=== PATIENT | male | born 1970 | race African-American/Black ===

== ENCOUNTER 2019-03-15 08:57 | Inpatient (IN) | payer OTHER ==
[2019-03-15 09:59] VITALS: BMI 23.7
--- NOTE | 2019-03-15 10:27 | HP ---
CIWA Score Nausea/Vomitin Muscle Tremors: 4-Moderate,w/Arms Extend Anxiety: 4-Mod. Anxious/Guarded Agitation: 1-Slight > Activity Paroxysmal Sweats: 1-Minimal Palms Moist Orientation: 0-Oriented Tacttile Disturbances: 1-Very Mild Itch/Numbness Auditory Disturbances: 0-None Visual Disturbances: 0-None Headache: 2-Mild CIWA-Ar Total Score: 15 - Admission Criteria OASAS Guidelines: Admission for Medically Managed Detox: Requires at least one of the followin. CIWA greater than 12 2. Seizures within the past 24 hours 3. Delirium tremens within the past 24 hours 4. Hallucinations within the past 24 hours 5. Acute intervention needed for co occurring medical disorder 6. Acute intervention needed for co occurring psychiatric disorder 7. Severe withdrawal that cannot be handled at a lower level of care (continued vomiting, continued diarrhea, abnormal vital signs) requiring intravenous medication and/or fluids 8. Patient presents the following: CIWA greater than 12 Admission Criteria Met: Admission criteria met Admission ROS BHS - HPI Chief Complaint: I'm tired of living this life- I've been on the other side and I don't want to be there - it's not a life, I'm sick, I can't stop drinking - as soon as I left I just went to the liquor store. Allergies/Adverse Reactions: Allergies Allergy/AdvReac Type Severity Reaction Status Date / Time codeine Allergy Severe Hives Verified 03/15/19 09:46 History of Present Illness: 48 yo gentleman here for detox from alcohol and opiates. Patient reports living in [place] for 10 years, states he had been in treatment for alcohol in 2014 and did well for two years then relapsed in 2017. He moved to [place] two weeks ago and continued drinking. He reports being in [facility] detox 03/11- and was supposed to go into rehab but there were no beds so he resumed drinking. He is seeking detox and rehab now. urine tox + methadone but he denies being on a methadone program or using street methadone - he states ' maybe they gave it to me at [facility]'. Denies seizures or overdose but has had black outs. States he drinks 'as soon as the liquor store opens, that's 8am in [place]'. Exam Limitations: No Limitations - Ebola screening Have you traveled outside of the country in the last 21 days: No (N) Have you had contact with anyone from an Ebola affected area: No Do you have a fever: No - Review of Systems Constitutional: Chills, Loss of Appetite, Night Sweats, Unintentional Wgt. Loss EENT: reports: Blurred Vision, Nose Congestion Respiratory: reports: No Symptoms reported Cardiac: reports: No Symptoms Reported GI: reports: Nausea, Poor Appetite, Indigestion, Abdominal cramping : reports: Frequency Musculoskeletal: reports: Back Pain, Muscle Pain Integumentary: reports: No Symptoms Reported Neuro: reports: Headache, Tingling Endocrine: reports: No Symptoms Reported Hematology: reports: No Symptoms Reported Psychiatric: reports: Judgement Intact, Mood/Affect Appropiate, Anxious Other Systems: Reviewed and Negative Patient History - Patient Medical History Hx Asthma: No Hx Cancer: No Hx Congestive Heart Failure: No Hx Hypertension: No Hx Hypercholesterolemia: No Hx Pacemaker: No HX Cerebrovascular Accident: Yes (2013 - left side mild weakness) Hx Seizures: No Hx Diabetes: No Hx Gastrointestinal Disorders: Yes (GERD) Hx Liver Disease: No Hx Genitourinary Disorders: No Hx Sexually Transmitted Disorders: No Hx Renal Disease (ESRD): No Hx Thyroid Disease: No Hx Human Immunodeficiency Virus (HIV): No Hx Hepatitis C: No Hx Depression: Yes (never hospitalized - on meds ) Hx Suicide Attempt: No Hx Bipolar Disorder: Yes Hx Schizophrenia: No - Patient Surgical History Past Surgical History: Yes Hx Abdominal Surgery: Yes (bilateral inguinal hernia repair 1992, 2015) - PPD History Previous Implant?: Yes Documented Results: Negative w/o proof Implanted On Prior R Admission?: No PPD to be Administered?: Yes - Reproductive History Patient is a Female of Child Bearing Age (11 -55 yrs old): No - Smoking Cessation Smoking history: Current every day smoker Have you smoked in the past 12 months: Yes Aproximately how many cigarettes per day: 10 Initiated information on smoking cessation: Yes 'Breaking Loose' booklet given: 03/15/19 (give on floor) - Substance & Tx. History Hx Alcohol Use: Yes Hx Substance Use: Yes Substance Use Type: Alcohol, Cocaine, Heroin Hx Substance Use Treatment: Yes - Substances abused Alcohol Substance route: Oral Frequency: Daily Amount used: 1 litre of vodka Age of first use: 13 Date of last use: 03/14/19 Cocaine Substance route: Smoking Frequency: Daily Amount used: 300-400usd daily Age of first use: 17 Date of last use: 03/14/19 Heroin Substance route: Inhalation Frequency: Daily Amount used: 1 bag Age of first use: 48 Date of last use: 03/13/19 Alprazolam (Xanax) Substance route: Oral Frequency: 1-3 times last 30 days Amount used: 1 bar Age of first use: 47 Date of last use: 03/11/19 Marijuana/Hashish Substance route: Smoking Frequency: Daily Amount used: 2 blunts Age of first use: 12 Date of last use: 03/14/19 Family Disease History - Family Disease History Family Disease History: Other: Father (living - healthy), Mother (living - healthy), Brother (one - healthy), Sister (one - healthy), Son (one - adult age 27 - healthy), Daughter (one age 19 -healthy) Admission Physical Exam S - Vital Signs Vital Signs: Vital Signs - 24 hr 03/15/19 03/15/19 09:16 10:07 Temperature 97.2 F L 97.2 F L Pulse Rate 88 88 Respiratory 17 17 Rate Blood Pressure 104/64 104/64 - Physical General Appearance: Yes: Nourished, Appropriately Dressed, Moderate Distress, Irritable, Anxious HEENTM: Yes: EOMI, Hearing grossly Normal, Normal ENT Inspection, Normocephalic , Normal Voice, Other (tongue coated) Respiratory: Yes: Normal Breath Sounds, No Respiratory Distress Neck: Yes: No masses,lesions,Nodules Breast: Yes: Breast Exam Deferred Cardiology: Yes: Regular Rhythm, Regular Rate Abdominal: Yes: Soft Genitourinary: Yes: Frequency Back: Yes: Normal Inspection Musculoskeletal: Yes: full range of Motion, Gait Steady Extremities: Yes: Normal Inspection, Normal Range of Motion, Non-Tender Neurological: Yes: Fully Oriented, Alert, Normal Mood/Affect, Normal Response Integumentary: Yes: Normal Color, Warm Lymphatic: Yes: Within Normal Limits - Diagnostic (1) Alcohol dependence with uncomplicated withdrawal Current Visit: Yes Status: Chronic (2) Cocaine dependence Current Visit: Yes Status: Chronic Qualifiers: Substance use status: uncomplicated Qualified Code(s): F14.20 - Cocaine dependence, uncomplicated (3) Marijuana dependence Current Visit: Yes Status: Chronic (4) Nicotine dependence Current Visit: Yes Status: Chronic Qualifiers: Nicotine product type: cigarettes Substance use status: uncomplicated Qualified Code(s): F17.210 - Nicotine dependence, cigarettes, uncomplicated (5) Mild alprazolam abuse Current Visit: Yes Status: Chronic (6) Opiate abuse, episodic Current Visit: Yes Status: Chronic (7) History of CVA (cerebrovascular accident) Current Visit: Yes Status: Chronic Cleared for Admission S - Detox or Rehab [facility] Level of Care: Medically Managed Detox Regimen/Protocol: Librium Breathalyzer - Breathalyzer Breathalyzer: 0 Urine Drug Screen - Test Device Lot number: [id number] Expiration date: 11/21/20 - Control Is test valid?: Yes - Results Drug screen NEGATIVE: No Urine drug screen results: THC-Marijuana, FREDDY-Cocaine, MTD-Methadone, BZO- Benzodiazepines Inpatient Rehab Admission - Rehab Decision to Admit Inpatient rehab admission?: No
[2019-03-15] MEDS ORDERED: IBUPROFEN 400 MG TABLET (FP) PO PRN (10:48)
[2019-03-15] MEDS ORDERED: NICOTINE POLACRILEX 4 MG GUM BUC PRN (10:48)
[2019-03-15] MEDS ORDERED: MELATONIN 5 MG TABLETS PO PRN (10:48)
[2019-03-15] MEDS ORDERED: MAG HYDROX/AL HYDROX/SIMETH 30 ML UNIT-DOSE CUP PO PRN (10:48)
[2019-03-15] MEDS ORDERED: METHOCARBAMOL 500 MG TABLET PO PRN (10:48)
[2019-03-15] MEDS ORDERED: chlordiazePOXIDE HCL 25 MG CAPSULE PO ONE (10:48)
[2019-03-15] MEDS ORDERED: chlordiazePOXIDE HCL 25 MG CAPSULE PO PRN (10:48)
[2019-03-15] MEDS ORDERED: ACETAMINOPHEN 325 MG TABLET (FP) PO PRN (10:48)
[2019-03-15] MEDS ORDERED: MAGNESIUM CITRATE 300 ML BOTTLE PO PRN (10:48)
[2019-03-15] MEDS ORDERED: BISMUTH SUBSALICYLATE 524 MG/30 ML UD PO PRN (10:48)
[2019-03-15] MEDS ORDERED: MAGNESIUM HYDROX 2400MG/30ML ORAL SUSPENSION 30 ML CUP PO PRN (10:48)
[2019-03-15] MEDS ORDERED: hydrOXYzine PAMOATE 25 MG CAPSULE (FP) PO PRN (10:48)
[2019-03-15] MEDS ORDERED: MENTHOL/PHENOL 1 EACH UD MM PRN (10:48)
[2019-03-15] MEDS: chlordiazePOXIDE HCL 25 MG CAPSULE PO SCH ×3 (11:49→22:51)
[2019-03-15] MEDS: NICOTINE 14 MG/24 HOURS TOPICAL PATCH TD SCH (11:54)
[2019-03-15] MEDS: THIAMINE HCL 100 MG TABLET (FP) PO SCH (22:51)
--- NOTE | 2019-03-16 05:44 | PN ---
[facility] Progress Note Note: Patient complained of cough and nasal congestion Vital Signs Temperature 97.8 F 03/16/19 06:21 Pulse Rate 82 03/16/19 06:21 Respiratory Rate 18 03/16/19 06:21 Blood Pressure 110/71 03/16/19 06:21 O2 Sat by Pulse Oximetry (%) Action: Guaifenesin 10ml oral Q6H as needed ordered Sudafed 30ml oral Q4H x 3 days ordered
[2019-03-16] MEDS ORDERED: PSEUDOEPHEDRINE HCL 30 MG TABLET PO SCH ×3 (05:45→07:45)
[2019-03-16] MEDS: chlordiazePOXIDE HCL 25 MG CAPSULE PO SCH ×4 (05:49→22:21)
[2019-03-16] MEDS ORDERED: P-EPHED 60MG/TRIPROLIDI 2.5MG TABLET PO PRN (07:38)
--- NOTE | 2019-03-16 09:38 | PN ---
[facility] CIWA - CIWA Score Nausea/Vomitin-Mild Nausea/No Vomiting Muscle Tremors: 3 Anxiety: 2 Agitation: 2 Paroxysmal Sweats: No Perspiration Orientation: 0-Oriented Tacttile Disturbances: 0-None Auditory Disturbances: 0-None Visual Disturbances: 1-Very Mild Sensitivity Headache: 1-Very Mild CIWA-Ar Total Score: 10 BHS Progress Note (SOAP) Subjective: alistair says cough is improving otherwise co poor sleep, shakiness and weakness Objective: 03/16/19 09:37 labs pending Vital Signs - 24 hr 03/15/19 03/15/19 03/15/19 10:07 13:30 17:25 Temperature 97.2 F L 97.3 F L 97.3 F L Pulse Rate 88 79 80 Respiratory 17 18 19 Rate Blood Pressure 104/64 142/91 118/71 03/15/19 03/16/19 03/16/19 21:46 00:28 03:30 Temperature 99 F Pulse Rate 84 Respiratory 19 18 18 Rate Blood Pressure 112/79 03/16/19 03/16/19 06:21 09:09 Temperature 97.8 F 98.1 F Pulse Rate 82 86 Respiratory 18 18 Rate Blood Pressure 110/71 130/85 Assessment: ongoign withdrawal Plan: continue current detox protocol fu cough, labs
[2019-03-16] MEDS: PRENATAL VITAMINS W/ FOLIC ACID TABLET (FP) PO SCH (10:11)
[2019-03-16] MEDS: NICOTINE 14 MG/24 HOURS TOPICAL PATCH TD SCH (10:12)
[2019-03-16 10:33] LABS: HEMOGLOBIN 13.9 GM/dL (11.7-16.9); MCH 30.4 pg (25.7-33.7); MCHC 33.2 g/dl (32.0-35.9); MEAN CELL VOLUME 91.7 fl (80-96); MEAN PLT VOLUME 7.4 fl (7.5-11.1); PLATELET COUNT 330 K/MM3 (134-434); RBC 4.58 M/mm3 (4.00-5.60); RDW 13.5 % (11.9-15.9); WHITE BLOOD COUNT 5.7 K/mm3 (4.0-10.0)
[2019-03-16 10:45] LABS: ALBUMIN 3.2 g/dl (3.4-5.0); BILIRUBIN,TOTAL 0.4 mg/dL (0.2-1); BLOOD UREA NITROGEN 10.7 mg/dL (7-18); CALCIUM 8.4 mg/dL (8.5-10.1); CREATININE 0.8 mg/dL (0.55-1.3); TOT PROT 6.2 g/dl (6.4-8.2)
[2019-03-16] MEDS: guaiFENesin/D-METHORPHAN HB 10 ML UNIT-DOSE CUPS PO PRN ×2 (12:20→19:39)
--- NOTE | 2019-03-16 13:01 | EKG ---
Test Reason : Blood Pressure : / mmHG Vent. Rate : 082 BPM Atrial Rate : 082 BPM P-R Int : 204 ms QRS Dur : 088 ms QT Int : 366 ms P-R-T Axes : 069 074 059 degrees QTc Int : 427 ms NORMAL SINUS RHYTHM NORMAL ECG NO PREVIOUS ECGS AVAILABLE Confirmed by ZACKARY JASON MD ([id number]) on 03/16/2019 1:00:47 PM Referred By: Confirmed By:ZACKARY JASON MD
--- NOTE | 2019-03-16 15:24 | PN ---
[facility] Progress Note Note: Psychiatrist neuropsychology division chief note Patient was admitted on 03/15/19 to detox. Medication reconciliation done. Depakote 500 mg/bid and Seroquel 100 mg/bid ordered
[2019-03-16] MEDS: THIAMINE HCL 100 MG TABLET (FP) PO SCH (22:20)
[2019-03-16] MEDS: DIVALPROEX SODIUM 500 MG TABLET E.C. PO SCH (22:21)
[2019-03-16] MEDS: QUEtiapine FUMARATE 100 MG TABLET (FP) PO SCH (22:21)
[2019-03-17] MEDS: chlordiazePOXIDE HCL 25 MG CAPSULE PO SCH (04:32)
[2019-03-17] MEDS: QUEtiapine FUMARATE 100 MG TABLET (FP) PO SCH ×2 (10:21→22:06)
[2019-03-17] MEDS: guaiFENesin/D-METHORPHAN HB 10 ML UNIT-DOSE CUPS PO PRN (10:24)
[2019-03-17] MEDS: chlordiazePOXIDE HCL 10 MG CAPSULE PO SCH ×3 (10:25→22:06)
[2019-03-17] MEDS: DIVALPROEX SODIUM 500 MG TABLET E.C. PO SCH ×2 (10:25→22:06)
[2019-03-17] MEDS: PRENATAL VITAMINS W/ FOLIC ACID TABLET (FP) PO SCH (10:25)
[2019-03-17] MEDS: NICOTINE 14 MG/24 HOURS TOPICAL PATCH TD SCH (10:25)
[2019-03-17] MEDS ORDERED: chlordiazePOXIDE HCL 10 MG CAPSULE PO PRN (11:00)
--- NOTE | 2019-03-17 11:50 | CONSULT ---
[facility] Psychiatric Consult - Data Date of interview: 03/17/19 Admission source: [facility] Identifying data: First admission to [facility] for this 48 y/o AA male self- referred for detoxification (heroin, cocaine, alcohol, cannabis, xanax, nicotine ). Examined at [address] [place] [address]. Patient is , a father of two, domiciled and reportedly employed. Substance Abuse History: Discussed in this session. Mr Bell confirms data in the following segment of [facility] report : Smoking history: Current every day smoker. Have you smoked in the past 12 months: Yes. Aproximately how many cigarettes per day: 10. Initiated information on smoking cessation: Yes. ' Breaking Loose' booklet given: 03/15/19 (give on floor). - Substance & Tx. History. Hx Alcohol Use: Yes. Hx Substance Use: Yes. Substance Use Type: Alcohol, Cocaine, Heroin. Hx Substance Use Treatment: Yes. - Substances abused. Alcohol. Substance route: Oral. Frequency: Daily. Amount used: 1 litre of vodka. Age of first use: 13. Date of last use: 03/14/19. Cocaine. Substance route: Smoking. Frequency: Daily. Amount used: 300-400usd daily. Age of first use: 17. Date of last use: 03/14/19. Heroin. Substance route: Inhalation. Frequency: Daily. Amount used: 1 bag. Age of first use: 48. Date of last use: 03/13/19. Alprazolam (Xanax). Substance route: Oral. Frequency: 1-3 times last 30 days. Amount used: 1 bar. Age of first use: 47. Date of last use: 03/11/19. Marijuana/Hashish. Substance route: Smoking. Frequency: Daily. Amount used: 2 blunts. Age of first use: 12. Date of last use: 03/14/19 Medical History: Medical profile is remarkable for GERD, antecedent of CVA + left sided weakness (2012) and a history of bilatreral inguinal herniorraphy. Psychiatric History: Patient denies history of psychiatric hospitalizations. Mr Bell indicates that he is currently on depakote 500 mg/bid + seroquel 100 mg/ hs. Diagnosed with Bipolar Disorder and Intermittent Explosive Disorder. " I have not seen a psychiatrist for past two years. I get my refills from my primary care doctors ". Pharmacy activity review shows recent refills (03/12/19) for both drugs at [facility]. Patient denies history of suicide attempts. Physical/Sexual Abuse/Trauma History: Patient denies. Additional Comment: Urine drug screen results: THC-Marijuana, FREDDY-Cocaine, MTD- Methadone, BZO-Benzodiazepines. Noted. Mental Status Exam - Mental Status Exam Alert and Oriented to: Time, Place, Person Cognitive Function: Good Patient Appearance: Well Groomed Mood: Nervous, Anxious Affect: Mood Congruent, Constricted Patient Behavior: Fatigued, Appropriate, Cooperative Speech Pattern: Clear, Appropriate Voice Loudness: Normal Thought Process: Goal Oriented Thought Disorder: Not Present Hallucinations: Denies Suicidal Ideation: Denies Homicidal Ideation: Denies Insight/Judgement: Poor Sleep: Poorly, Difficulty falling asleep Appetite: Good Muscle strength/Tone: Normal Gait/Station: Normal Psychiatric Findings - Problem List ([place] 1, 2,3) (1) Alcohol dependence with uncomplicated withdrawal Current Visit: Yes Status: Acute (2) Opiate abuse, episodic Current Visit: Yes Status: Chronic (3) Cocaine dependence Current Visit: Yes Status: Chronic Qualifiers: Substance use status: uncomplicated Qualified Code(s): F14.20 - Cocaine dependence, uncomplicated (4) Marijuana dependence Current Visit: Yes Status: Chronic (5) Mild alprazolam abuse Current Visit: Yes Status: Chronic (6) Nicotine dependence Current Visit: Yes Status: Chronic Qualifiers: Nicotine product type: cigarettes Substance use status: uncomplicated Qualified Code(s): F17.210 - Nicotine dependence, cigarettes, uncomplicated (7) Substance induced mood disorder Current Visit: Yes Status: Chronic (8) History of bipolar disorder Current Visit: Yes Status: Chronic (9) Insomnia Current Visit: Yes Status: Chronic (10) Non-compliance Current Visit: Yes Status: Chronic - Initial Treatment Plan Initial Treatment Plan: Psychoeducation. Sleep hygiene. Detoxification. Support. AA/NA meetings. Relapse prevention (MAT) : discussed in this session. Medications resumed as : seroquel 100 mg po hs + depakote 500 mg po bid. Side effects/benefits of both drugs are discussed with patient. Made aware of risk of blood dyscrasias, weight gain, alopecia, liver dysfunction, metabolic syndrome, orthostasis and abnormal involuntary movements. Patient expresses his agrrement with this plan of care. Verbal consent granted to MD. Valproic acid level requested. Will follow. Observation.
--- NOTE | 2019-03-17 13:52 | PN ---
[facility] CIWA - CIWA Score Nausea/Vomitin-No Nausea/No Vomiting Muscle Tremors: 2 Anxiety: 3 Agitation: 0-Normal Activity Paroxysmal Sweats: 2 Orientation: 0-Oriented Tacttile Disturbances: 0-None Auditory Disturbances: 1-Very Mild Visual Disturbances: 2-Mild Sensitivity Headache: 0-None Present CIWA-Ar Total Score: 10 S Progress Note (SOAP) Subjective: Fatigue, Anxious, Sweating. Patient Reporting Cough X approx. 4 days now. Cough is non-productive, according to Patient. Patient denies [id number], Nasal Congestion, and Sore Throat. Patient notes that He believes that He initially got sick when he was in other facility near the end of last week. Objective: PATIENT A & O X 3. IN NO ACUTE DISTRESS. PATIENT IS AFBERILE. 03/17/19 13:49 Vital Signs Temperature 98.3 F 03/17/19 13:15 Pulse Rate 106 H 03/17/19 13:15 Respiratory Rate 18 03/17/19 13:15 Blood Pressure 118/81 03/17/19 13:15 O2 Sat by Pulse Oximetry (%) Laboratory Tests 03/16/19 03/16/19 03/16/19 08:00 08:00 08:00 WBC 5.7 RBC 4.58 Hgb 13.9 Hct 42.0 MCV 91.7 MCH 30.4 MCHC 33.2 RDW 13.5 Plt Count 330 MPV 7.4 L Sodium 143 Potassium 4.0 Chloride 108 H Carbon Dioxide 29 Anion Gap 6 L BUN 10.7 Creatinine 0.8 Est GFR (CKD-EPI)AfAm 123.29 Est GFR (CKD-EPI)NonAf 106.38 Random Glucose 113 H Calcium 8.4 L Total Bilirubin 0.4 AST 14 L ALT 18 Alkaline Phosphatase 84 Total Protein 6.2 L Albumin 3.2 L RPR Titer Nonreactive LABS NOTED. Assessment: 03/17/19 13:50 WITHDRAWAL SYMPTOMS. Plan: CONTINUE DETOS. INCREASE DAILY PO WATER INTAKE. PRN DUONEB FOR COUGH. MUCINEX BID FOR COUGH (PATIENT REPORTS POOR EFFECT FROM ROBITUSSIN).
[2019-03-17] MEDS: guaiFENesin/D-METHORPHAN TAB.ER.12H PO SCH ×2 (15:27→22:14)
[2019-03-17] MEDS: ALBUTEROL SO4 2.5/IPRATROPIUM 0.5 INH SOL 3 ML VIAL.NEB. NEB PRN (15:29)
[2019-03-17] MEDS ORDERED: MIRTAZAPINE 15 MG TABLET (FP) PO SCH (22:00)
[2019-03-17] MEDS: THIAMINE HCL 100 MG TABLET (FP) PO SCH (22:06)
[2019-03-17 23:32] LABS: EPI CELLS 1.8 /HPF (0-5/HPF); HYALINE CASTS 4 /lpf (0-8); PH,URINE 7.5 (5.0-8.0); URINE APPEARANCE CLEAR; URINE BACTERIA 11.5 /hpf (NEGATIVE); URINE BILIRUBIN NEGATIVE (NEGATIVE); URINE COLOR YELLOW; URINE GLUCOSE (UA) NEGATIVE (NEGATIVE); URINE KETONE TRACE (NEGATIVE); URINE LEUK ESTERASE TRACE (NEGATIVE); URINE NITRITE NEGATIVE (NEGATIVE); URINE PROTEIN NEGATIVE (NEGATIVE); URINE RBC 0 /hpf (0-4); URINE WBC 4 /hpf (0-5)
[2019-03-18 00:07] LABS: URINE CRYSTALS FEW CA OXALT /hpf
[2019-03-18] MEDS: chlordiazePOXIDE HCL 10 MG CAPSULE PO SCH (05:33)
[2019-03-18 09:19] VITALS: BP 118/71; PULSE 88; TEMP 97
[2019-03-18] MEDS: QUEtiapine FUMARATE 100 MG TABLET (FP) PO SCH (10:13)
[2019-03-18] MEDS: DIVALPROEX SODIUM 500 MG TABLET E.C. PO SCH (10:13)
[2019-03-18] MEDS: guaiFENesin/D-METHORPHAN TAB.ER.12H PO SCH (10:13)
[2019-03-18] MEDS: PRENATAL VITAMINS W/ FOLIC ACID TABLET (FP) PO SCH (10:14)
[2019-03-18] MEDS: ALBUTEROL SO4 2.5/IPRATROPIUM 0.5 INH SOL 3 ML VIAL.NEB. NEB PRN (10:36)
[2019-03-18] MEDS: NICOTINE 14 MG/24 HOURS TOPICAL PATCH TD SCH (10:43)
[2019-03-18] MEDS ORDERED: chlordiazePOXIDE HCL 10 MG CAPSULE PO SCH (11:00)
--- NOTE | 2019-03-18 16:32 | PN ---
S CIWA - CIWA Score Nausea/Vomitin-No Nausea/No Vomiting Muscle Tremors: None Anxiety: 0-No Anxiety, at Ease Agitation: 2 Paroxysmal Sweats: 1-Minimal Palms Moist Orientation: 0-Oriented Tacttile Disturbances: 1-Very Mild Itch/Numbness Auditory Disturbances: 0-None Visual Disturbances: 0-None Headache: 0-None Present CIWA-Ar Total Score: 4 BHS Progress Note (SOAP) Subjective: Fatigue (Mild), Sweating (Mild). Objective: PATIENT A & O X 3, OBSERVED AMBULATING ON UNIT UNASSISTED. IN NO ACUTE DISTRESS. PATIENT REPORTS THAT COUGH IS SLOWLY DIMINISHING IN FREQUENCY AND IN SEVERITY. 03/18/19 16:30 Vital Signs Temperature 97.0 F L 03/18/19 09:18 Pulse Rate 88 03/18/19 09:18 Respiratory Rate 18 03/18/19 09:18 Blood Pressure 118/71 03/18/19 09:18 O2 Sat by Pulse Oximetry (%) Laboratory Tests 03/16/19 03/16/19 03/16/19 08:00 08:00 08:00 WBC 5.7 RBC 4.58 Hgb 13.9 Hct 42.0 MCV 91.7 MCH 30.4 MCHC 33.2 RDW 13.5 Plt Count 330 MPV 7.4 L Sodium 143 Potassium 4.0 Chloride 108 H Carbon Dioxide 29 Anion Gap 6 L BUN 10.7 Creatinine 0.8 Est GFR (CKD-EPI)AfAm 123.29 Est GFR (CKD-EPI)NonAf 106.38 Random Glucose 113 H Calcium 8.4 L Total Bilirubin 0.4 AST 14 L ALT 18 Alkaline Phosphatase 84 Total Protein 6.2 L Albumin 3.2 L Urine Color Urine Appearance Urine pH Ur Specific [place] Urine Protein Urine Glucose (UA) Urine Ketones Urine Blood Urine Nitrite Urine Bilirubin Urine Urobilinogen Ur Leukocyte Esterase Urine WBC (Auto) Urine RBC (Auto) Urine Casts (Auto) U Epithel Cells (Auto) Urine Crystals (Auto) Urine Bacteria (Auto) RPR Titer Nonreactive 03/17/19 21:30 WBC RBC Hgb Hct MCV MCH MCHC RDW Plt Count MPV Sodium Potassium Chloride Carbon Dioxide Anion Gap BUN Creatinine Est GFR (CKD-EPI)AfAm Est GFR (CKD-EPI)NonAf Random Glucose Calcium Total Bilirubin AST ALT Alkaline Phosphatase Total Protein Albumin Urine Color Yellow Urine Appearance Clear Urine pH 7.5 Ur Specific [place] 1.023 Urine Protein Negative Urine Glucose (UA) Negative Urine Ketones Trace H Urine Blood Negative Urine Nitrite Negative Urine Bilirubin Negative Urine Urobilinogen 1.0 Ur Leukocyte Esterase Trace Urine WBC (Auto) 4 Urine RBC (Auto) 0 Urine Casts (Auto) 4 U Epithel Cells (Auto) 1.8 Urine Crystals (Auto) Few ca oxalt Urine Bacteria (Auto) 11.5 RPR Titer LABS NOTED. Assessment: 03/18/19 16:31 COMPLETION OF DETOX REGIMEN. Plan: SINCE PATIENT REPORTS THAT CURRENT WITHDRAWAL / DETOX SYMPTOMS ARE MINIMAL IN DEGREE AND THAT HE FEELS WELL OVERALL, AT PATIENTS REQUEST, HE WAS GRANTED AN EARLY DISCHARGE FROM DETOX UNIT TODAY SO THAT HE MAY PROCEED ON TO AFTERCARE PLAN - [facility], [place], [place].
--- NOTE | 2019-03-18 16:34 | DS ---
[facility] Detox Discharge Summary Admission Date: 03/15/19 Discharge Date: 03/18/19 - History Present History: Alcohol Dependence, Cannabis Dependence, Cocaine Dependence, Opioid Dependence, Sedative Dependence Additional Comments: PATIENT REPORTS THAT CURRENT WITHDRAWAL / DETOX SYMPTOMS ARE MINIMAL IN DEGREE AND THAT HE FEELS WELL OVERALL AT TIME OF DISCHARGE FROM DETOX UNIT. PATIENT GOING TO [facility] ([place], [place]) FOR AFTERCARE. PATIENT REPORTS THAT COUGH THAT HE HAD BEEN EXPERIENCING WHILE ADMITTED FOR DETOX HAS BEEN DIMINISHING IN FREQUENCY AND IN SEVERITY OVER LAST COUPLE OF DAYS. PATIENT DENIES CHEST PAIN AND SOB. PATIENT AFEBRILE AND VS STABLE TIME IN WHICH PATIENT WAS DISCHARGED FORM DETOX UNITY. PATIENT ADVISED TO FOLLOW-UP WITH [facility] WHEN POSSIBLE IF COUGH DOES NOT CONTINUE TO IMPROVE OR BECOMES WORSE AT ANY TIME. PATIENT VERBALIZED UNDERSTANDING OF RECOMMENDATION. PATIENT WAS DISCHARGED FORM DETOX UNIT IN STABLE MEDICAL CONDITION. Pertinent Past History: Depression, G.E.R.D., History Of CVA (With Residual Left-Sided Weakness), Nicotine Dependence, Insomnia. - Physical Exam Results Vital Signs: Vital Signs Temperature 97.0 F L 03/18/19 09:18 Pulse Rate 88 03/18/19 09:18 Respiratory Rate 18 03/18/19 09:18 Blood Pressure 118/71 03/18/19 09:18 O2 Sat by Pulse Oximetry (%) Pertinent Admission Physical Exam Findings: WITHDRAWAL SYMPTOMS. Laboratory Tests 03/16/19 03/16/19 03/16/19 08:00 08:00 08:00 WBC 5.7 RBC 4.58 Hgb 13.9 Hct 42.0 MCV 91.7 MCH 30.4 MCHC 33.2 RDW 13.5 Plt Count 330 MPV 7.4 L Sodium 143 Potassium 4.0 Chloride 108 H Carbon Dioxide 29 Anion Gap 6 L BUN 10.7 Creatinine 0.8 Est GFR (CKD-EPI)AfAm 123.29 Est GFR (CKD-EPI)NonAf 106.38 Random Glucose 113 H Calcium 8.4 L Total Bilirubin 0.4 AST 14 L ALT 18 Alkaline Phosphatase 84 Total Protein 6.2 L Albumin 3.2 L Urine Color Urine Appearance Urine pH Ur Specific [place] Urine Protein Urine Glucose (UA) Urine Ketones Urine Blood Urine Nitrite Urine Bilirubin Urine Urobilinogen Ur Leukocyte Esterase Urine WBC (Auto) Urine RBC (Auto) Urine Casts (Auto) U Epithel Cells (Auto) Urine Crystals (Auto) Urine Bacteria (Auto) RPR Titer Nonreactive 03/17/19 21:30 WBC RBC Hgb Hct MCV MCH MCHC RDW Plt Count MPV Sodium Potassium Chloride Carbon Dioxide Anion Gap BUN Creatinine Est GFR (CKD-EPI)AfAm Est GFR (CKD-EPI)NonAf Random Glucose Calcium Total Bilirubin AST ALT Alkaline Phosphatase Total Protein Albumin Urine Color Yellow Urine Appearance Clear Urine pH 7.5 Ur Specific [place] 1.023 Urine Protein Negative Urine Glucose (UA) Negative Urine Ketones Trace H Urine Blood Negative Urine Nitrite Negative Urine Bilirubin Negative Urine Urobilinogen 1.0 Ur Leukocyte Esterase Trace Urine WBC (Auto) 4 Urine RBC (Auto) 0 Urine Casts (Auto) 4 U Epithel Cells (Auto) 1.8 Urine Crystals (Auto) Few ca oxalt Urine Bacteria (Auto) 11.5 RPR Titer LABS NOTED. - Treatment Hospital Course: Detox Protocol Followed, Detoxed Safely, Responded well, Discharged Condition Good Patient has Accepted a Rehab Referral to: PT. GOING TO [facility] ([place], [place]) - Medication Discharge Medications: Ambulatory Orders Divalproex [Depakote -] 500 mg PO BID 03/15/19 Quetiapine Fumarate [Seroquel] 100 mg PO BID 03/15/19 - Diagnosis (1) Alcohol dependence with uncomplicated withdrawal Status: Acute (2) Cocaine dependence Status: Chronic Qualifiers: Substance use status: uncomplicated Qualified Code(s): F14.20 - Cocaine dependence, uncomplicated (3) History of CVA (cerebrovascular accident) Status: Chronic (4) History of bipolar disorder Status: Chronic (5) Insomnia Status: Chronic Qualifiers: Insomnia type: unspecified Qualified Code(s): G47.00 - Insomnia, unspecified (6) Marijuana dependence Status: Chronic (7) Mild alprazolam abuse Status: Chronic (8) Nicotine dependence Status: Chronic Qualifiers: Nicotine product type: cigarettes Substance use status: uncomplicated Qualified Code(s): F17.210 - Nicotine dependence, cigarettes, uncomplicated (9) Non-compliance Status: Chronic (10) Opiate abuse, episodic Status: Chronic (11) Substance induced mood disorder Status: Chronic - AMA Did Patient Leave Against Medical Advice: No
== END 2019-03-18 12:29 | disposition home or self-care (01) | DRG 773 ==
LOC: YASAS 08:57 → Y3N 11:15
PROVIDERS: ADMIT Surgery; ATTEND Surgery
PROC: HZ2ZZZZ Detoxification Services for Substance Abuse Treatment (ICD-10-PCS; principal; 2019-03-15)
DX: F10.230 Alcohol dependence with withdrawal, uncomplicated (principal); F11.23 Opioid dependence with withdrawal; F13.230 Sedative, hypnotic or anxiolytic dependence with withdrawal, uncomplicated; F14.20 Cocaine dependence, uncomplicated; F12.20 Cannabis dependence, uncomplicated; F17.210 Nicotine dependence, cigarettes, uncomplicated; F31.9 Bipolar disorder, unspecified; F19.24 Other psychoactive substance dependence with psychoactive substance-induced mood disorder; F32.9 Major depressive disorder, single episode, unspecified; K21.9 Gastro-esophageal reflux disease without esophagitis; I69.854 Hemiplegia and hemiparesis following other cerebrovascular disease affecting left non-dominant side; R05 Cough; R09.81 Nasal congestion; Z91.19 Patient's noncompliance with other medical treatment and regimen
CPT/HCPCS: 36415; 80053; 81003; 85027; 86593; 93005; 93010; 94640